=== PATIENT | male | born 2000 | race Caucasian/White ===

== ENCOUNTER 2025-03-05 14:24 | Emergency (ER) | payer BC, SELFPAY ==
[2025-03-05 14:33] VITALS: BP 120/63; PULSE 73; RESP 16; TEMP 37.2; O2SAT 100; BMI 25.0
--- NOTE | 2025-03-05 14:51 | CRLHL7_ITS ---
For Patients: As a result of the Cures Act, medical imaging exams and procedure reports are released immediately into your electronic medical record. You may view this report before your referring provider. If you have questions, please contact your health care provider. INDICATION: Puncture injury. TECHNIQUE: Right tibia fibula 2 views. FINDINGS: There is a small amount of air within the midportion of the calf on the medial side. There is no underlying fracture, dislocation or radiodense foreign body. Dictated by Clemente Church MD @ 03/05/2025 3:30:58 PM (Electronically Signed)
--- NOTE | 2025-03-05 14:52 | ED_ITS ---
HPI - General Adult General Chief complaint: Extremity Pain/Injury, Lower Stated complaint: Injury to left calf Time Seen by Provider: 03/05/25 14:40 Source: patient Mode of arrival: EMS Limitations: no limitations History of Present Illness HPI narrative: 24-year-old male presents the emergency department after a puncture wound from a broken golf club. Patient was golfing and accidentally struck a large stick. This cause the golf club to sever in half and broke in half to stab him in the right calf area. Friend is present with him and examine the golf club it did not appear as though there were any broken loose bodies missing. He is able to bend and flex his leg and foot with no difficulty. He admits that he is very squeamish around the side of blood. Wound was bandaged by EMS and he is brought to the ED for evaluation. He is not immunocompromised, does not take any anticoagulants. Last tetanus shot was 2 years ago. Has not taken any medications thus far to help with pain. Reports benign past medical history had an elbow surgery couple years ago but no long-term medical problems, no long-term medications or allergies. ROS is notable for the musculoskeletal symptoms on the right calf only, no other areas of injury to the skin, no vascular, musculoskeletal or other skin changes. feeling generally well today. Related Data Home Medications ?Medication ?Instructions ?Recorded ?Confirmed No Known Home Medications 03/05/2509/24 Allergies Allergy/AdvReac Type Severity Reaction Status Date / Time No Known Drug Allergies Allergy Verified 03/05/25 14:32 [facility] Social History Smoking Status: Never smoker Exam Const: Vital Signs, click to edit/add: Vital Signs - 24 hr 03/05/25 14:33 Temperature 98.9 F Pulse Rate [Pulse Oximeter] 73 Respiratory Rate 16 Blood Pressure [Ri ght Upper Arm] 120/63 Pulse Oximetry 100 Oxygen Delivery Me thod Room Air Documenting provider has reviewed patient's vital signs: yes Common normals: no apparent distress General appearance: well kempt HENMT: Common normals: normocephalic Head and scalp: normocephalic Face and sinus: normal facial exam Eye: General eye: normal appearance of both eyes Neck & C-Spine: General: normal visual inspection Resp: Common normals: normal respiratory effort Effort & inspection: able to speak in complete sentences Extremity: Other: Right and left lower extremity examined. Left side grossly normal. Right side has dressing in place, removed. Wound examined. There is a laceration that is 1.5 cm in length, elliptical shaped full skin dermis and epidermis thickness and also slight laceration of the muscle but does not appear any deeper. I do not see any obvious foreign body. At the moment, it is not bleeding. Able to move the ankle and knee without difficulty. No effusions, bruising or other signs of injury. Psych: Appearance: well kempt Activity/motor behavior: appropriate eye contact Insight: insight good Judgement: judgment good Skin: Narrative: No other areas of injury besides the 1.5 cm laceration as above Course Course ED Course: 24-year-old male with traumatic laceration to right lower extremity. Full skin and slight muscular depth. No signs of vascular or neurological injury. Will obtain x-ray due to potential metal foreign body. Tetanus seems up-to-date. Once he is back from x-ray, anticipate suture closure. Will give 600 mg of ibuprofen for pain control. Reevaluation(s) Reevaluation #1: Unfortunately, patient could not tolerate holding still well enough for Steri- Strip closure, switch to suture. See procedure note. Three running sutures were placed with excellent hemostasis and cosmetic closure. Patient reports that his physical trainer can have these removed. I recommended 5 days. Couns eled on Tylenol and ibuprofen as needed. Okay to shower in 8 hours, no vigorous sports for 48 hours. Infection unlikely but antibiotic ointment and Band-Aid daily to cover encouraged. Alarm symptoms reviewed that would warrant ED evaluation. Verbalizes understanding and agreement. Covered with antibiotic ointment and Band-Aid prior to departure. Tetanus reportedly up-to-date. X-ray reviewed with no signs of foreign body. Vital Signs Vital signs: Initial Vital Signs Temperature 98.9 F 03/05/25 14:33 Temperature Source Temporal Artery Scan 03/05/25 14:33 Pulse Rate 73 03/05/25 14:33 Respiratory Rate 16 03/05/25 14:33 Blood Pressure 120/63 03/05/25 14:33 Blood Pressure Mean 82 03/05/25 14:33 Blood Pressure Position Sitting 03/05/25 14:33 Pulse Oximetry 100 10/04/25 14:33 Oxygen Delivery Method Room Air 03/05/25 14:33 Vital Signs Temperature 98.9 F 03/05/25 14:33 Pulse Rate 73 03/05/25 14:33 Respiratory Rate 16 03/05/25 14:33 Blood Pressure 120/63 03/05/25 14:33 Pulse Oximetry 100 03/05/25 14:33 Oxygen Delivery Method Room Air 03/05/25 14:33 Temperature 98.9 F 03/05/25 14:33 Pulse Rate 73 03/05/25 14:33 Respiratory Rate 16 03/05/25 14:33 Blood Pressure 120/63 03/05/25 14:33 Pulse Oximetry 100 03/05/25 14:33 Oxygen Delivery Method Room Air 03/05/25 14:33 Medications Administered Medications: Discontinued Medications Generic Name Dose Route Start Last Admin Trade Name Freq PRN Reason Stop Dose Admin Ibuprofen 600 mg 03/05/25 14:50 03/05/25 14:55 Ibuprofen 200 Mg Tablet PO 03/05/25 14:51 600 mg ONCE ONE Administration Lidocaine/Epinephrine 20 ml 03/05/25 15:21 03/05/25 15:27 Lidocaine 1%-Epi 1:100,000 INFILTRATI 03/05/25 15:22 20 ml ONCE ONE Administration Medical Decision Making Imaging Data X-ray right tibia: Attestation: I have reviewed the pertinent imaging results. My impression: No evidence of radiopaque foreign body. No fractures either. Radiologist's impression: NDICATION: Puncture injury. TECHNIQUE: Right tibia fibula 2 views. FINDINGS: There is a small amount of air within the midportion of the calf on the medial side. There is no underlying fracture, dislocation or radiodense foreign body. Dictated by Clemente Church MD @ 03/05/2025 3:30:58 PM Discharge Plan Discharge Clinical Impression: Laceration Patient Disposition: Home w/ Parent or Adult Condition: Improved Instructions: Care For Your Stitches (DC) Additional Instructions: As we discussed, there were no signs of foreign body from a golf club. This is good news. There is not seem to be any injury to the blood vessels or nerves. The slight muscular tear will heal fine in just a few days. You can shower normally in 8 hours. Try to keep the wound covered with antibiotic ointment and a large Band-Aid. Change the Band-Aid once daily. Stitches should be removed in about 5 days. You may resume sports in 48 hours. It is okay to use Tylenol and/or ibuprofen as needed for mild discomfort. Some slight oozing is normal but any severe bleeding should be re-evaluated. Infection is unlikely, but if you have purulent drainage, severe redness or other signs of complication, you should return to the emergency department or have the clinic evaluate. Activity Level: Activity as Tolerated Discharge Diet: Regular Prescriptions: No Action No Known Home Medications Stand Alone Forms: [facility] Info Instructions Procedures Laceration Laceration 1: Written consent by: patient Site: lower extremity Size (cm): 1.5 Description: linear Depth: involves muscle layer Local Anesthetic: lidocaine 1% Amount of anesthesia used (mL): 3 Skin layer closed with: nylon (4-0) Size (cm): 4-0 Number of sutures: 3 Technique: running Conclusion: patient tolerated procedure
[2025-03-05] MEDS: IBUPROFEN 200 MG TABLET 600 MG PO (14:55)
[2025-03-05] MEDS: LIDOCAINE 1%-EPI 1:100,000 20 ML INFILTRATI (15:27)
--- OUTSIDE RECORDS SUMMARY | 2025-03-05 16:00 | XMS_ITS | Patient Health Record ---
Author Organization [facility] Address [facility] [place] [address] Support Name Relationship Address Phone Ilya Benítez Emergency Contact Unknown Ilya Benítez Guarantor Unknown [phone] Reason For Referral No Information Plan Of Treatment No Information Insurance Providers Payer Name Payer Address Payer Phone Subscriber Number Group Number Insured Name Patient Relationship to Insured Coverage Start Date Coverage End Date [employer] [address] [place] [address] [id number] Ilya Benítez Natural Child - Insured has Financial Responsibility
--- OUTSIDE RECORDS SUMMARY | 2025-03-05 16:00 | XMS_ITS | Clinical Summary ---
Author Organization [facility] Address [address] [place] [address] Care Team Providers Care Assistant Clinical Director Name Role Phone Unavailable Primary Care Provider Unavailabl e Social History Tobacco Use Types Packs/Day Years Used Date Smoking Tobacco: Never Assessed Sex and Gender Information Value Date Recorded Sex Assigned at Not on file Legal Sex Male 2:38 PM EDT Gender Identity Not on file Sexual Orientation Not on file Plan of Treatment Health Maintenance Due Date Last Done Comments HPV Vaccines (1 - Male 3-dos e series) 2016 DTaP,Tdap,and Td Vaccines (1 - Tdap) 2020 Hepatitis B Vaccines (1 of 3 - 19+ 3-dose series) 2020 Influenza Vaccine (#1) 2025 Pneumococcal 50+ (1 of 1 - PCV) 12/03/2051 Respiratory Syncytial Virus (RSV) Immunizations HM Topic for 60 years or older & patients (1 - 1-dose 75+ series) 2076 HIB Vaccines Aged Out No longer eligi ble based on patient's age to complete this topic Hepatitis A Vaccines Aged Out No long er eligible based on patient's age to complete this topic IPV Vaccines Aged Out No longer eligi ble based on patient's age to complete this topic Meningococcal Vaccine Aged Out No maria e chica eligible based on patient's age to complete this topic Pneumococcal 0-49 yrs Aged Out No maria e chica eligible based on patient's age to complete this topic Respiratory Syncytial Virus (RSV) Immunizations HM Topic (Under 20 months) Aged Out No longer eligible b ased on patient's age to complete this topic Insurance [employer] PPO
--- OUTSIDE RECORDS SUMMARY | 2025-03-05 16:00 | XMS_ITS ---
Author Name [facility] Organization Unknown Encounters Encounter Type Encounter Reason Primary Diagnosis Location Date Ambulatory [facility], [facility] 01/03/2022 Ambulatory [facility], [facility] 12/10/2021 Care Team Organization Name Specialty Phone Email Start Date End [facility] te [facility] 08/31/2024 025 Haley Hendrix MD, [facility] 024 09/09/2023 [facility] 05/04/2022 024
--- OUTSIDE RECORDS SUMMARY | 2025-03-05 16:00 | XMS_ITS | Clinical Summary ---
Author Organization [facility] Address [address] [place] [address] Care Team Providers Care Forestry Conservation Worker Name Role Phone Pcp, No Primary Care Provider Unavailabl e Allergies No known active allergies Medications No known medications Social History Tobacco Use Types Packs/Day Years Used Date Smoking Tobacco: Never Smokeless Tobacco: Never Tobacco Cessation:Counseling Given: Not Answered Sex and Gender Information Value Date Recorded Sex Assigned at Not on file Legal Sex Male 10:46 AM CDT Gender Identity Not on file Sexual Orientation Not on file Obstetrics History Last Filed Vital Signs Vital Sign Reading Time Taken Comments Blood Pressure 158/90 03/09/2023 9:21 AM CDT Pulse 80 03/09/2023 9:21 AM CDT Temperature 36.9 C (98.5 F) 03/09/2023 9:21 AM CDT Respiratory Rate 20 03/09/2023 9:21 AM CDT Oxygen Saturation 98% 03/09/2023 9:21 AM CDT Inhaled Oxygen Concentration - - Weight 93 kg (205 lb) 03/09/2023 9:21 AM CDT Height 193 cm (6' 4) 03/09/2023 9:21 AM CDT Body Mass Index 24.95 03/09/2023 9:21 AM CDT Plan of Treatment Health Maintenance Due Date Last Done Comments Tetanus booster 2012 Depression screening for age 12+ 2013 HIV for age 15-65 2016 HPV series for age 9-45 (1 - Male 3-dose series) 2016 Hepatitis C screening for ag e 18-79 12/03/2019 Hepatitis B series for 19+ ( 1 of 3 - 19+ 3-dose series) 2020 BMI (ht and wt on same day) for age 18+ 03/09/2024 03/09/2023 COVID-19 vaccine series ( - 2023- season) 2025 Influenza Vaccine (#1) 2025 RSV vaccine for adults or (1 - 1-dose 75+ series) 2076 Pneumococcal series for age 6-49 Aged Out No longer eligible based on patient's age to complete this topic Insurance [id number]-[facility] Care Teams Forestry Conservation Worker Relationship Specialty Start Date End Date Pcp, No . PCP - General 01/24/22
== END 2025-03-05 16:00 | disposition home or self-care (01) ==
LOC: ED 15:58
PROVIDERS: Emergency Provider Family Medicine
DX: S81.812A Laceration without foreign body, left lower leg, initial encounter (principal); W45.8XXA Other foreign body or object entering through skin, initial encounter; W21.89XA Striking against or struck by other sports equipment, initial encounter; Y93.53 Activity, golf; Y92.39 Other specified sports and athletic area as the place of occurrence of the external cause
CPT/HCPCS: 12001; 73590; 99283; A9270